=== PATIENT | female | born 2000 | race African-American/Black ===

== ENCOUNTER 2023-01-08 03:53 | Emergency (ER) | payer SELFPAY ==
[~2023-01-08] VITALS: Ht 170.2 cm; Wt 63.5 kg
--- NOTE | 2023-01-08 04:10 | NUR ---
BIBS C/O DOG BITE ON BILATERAL HANDS. +CMS
--- NOTE | 2023-01-08 04:22 | NUR ---
EMT AT BEDSIDE TO CLEAN HAND
[2023-01-08] MEDS ORDERED: LIDOCAINE 1% INJ 50 ML MDV IJ ONE (04:30)
[2023-01-08] MEDS ORDERED: AMOX-430 PO (04:31)
[2023-01-08 05:09] VITALS: BP 116/71; TEMP 97.9
--- NOTE | 2023-01-08 05:09 | NUR ---
Patient discharged to home in stable condition. Written and verbal after care instructions given. Patient verbalizes understanding of instruction.
== END 2023-01-08 05:10 | disposition home or self-care (01) ==
LOC: ER 04:10
DX: S61.412A Laceration without foreign body of left hand, initial encounter (principal); W54.0XXA Bitten by dog, initial encounter; Y93.89 Activity, other specified; Y92.89 Other specified places as the place of occurrence of the external cause; Y99.8 Other external cause status
CPT/HCPCS: 12001; 99283; J3490